=== PATIENT | male | born 1955 | race Caucasian/White ===

== ENCOUNTER 2025-01-28 09:26 | Day surgery (SDC) | payer MEDICARE, OTHER, SELFPAY ==
[2025-01-28] VITALS (13 sets, daily range): BP systolic 109–155; BP diastolic 80–95; PULSE 63–76; RESP 16–18; TEMP 36.2–36.8; O2SAT 95–100; BMI 29.0
[2025-01-28] MEDS: Ondansetron 4 MG/2 ML Vial IV (09:56)
[2025-01-28] MEDS: Ketorolac 15 MG/ML Vial IV (09:57)
[2025-01-28] MEDS: 0.9% Normal Saline (1000mL) 1,000 ML 1000 ML IV (09:58)
--- NOTE | 2025-01-28 10:01 | ED.VIS.FEGU ---
HPI HPI - Female History of Present Illness Chief Complaint: Flank Pain Narrative Narrative: Chief complaint and HPI: Left flank pain. 69-year-old male who has stage I prostate cancer, factor V Leiden not on anticoagulation, and history of urolithiasis in the past presents for evaluation of left flank pain. Onset of pain was prior to arrival. Patient states he was doing a leg press when he developed left flank pain. He states originally he thought he strained his back but then noticed it felt similar to his previous kidney stone pain. He denies any fever, chills, shortness of breath, chest pain, nausea, vomiting, dysuria, hematuria, diarrhea, constipation. Describes his pain as crampy. States he cannot get comfortable. Denies any penile or testicular pain. Review of systems: See HPI Medications: As listed on the chart Allergies: As listed on the chart PFSH: Per chart Vital signs: As listed on the chart. Reviewed. Physical exam: Gen: A&O x3, NAD Head: Normocephalic, atraumatic Eyes: No sclera icterus, conjunctiva clear ENT: Moist mucous membranes Neck: Trachea midline, No JVD CV: RRR, no murmurs, no peripheral edema Resp: Lungs CTA BL, no w/r/c GI: Abd soft, non-distended, non-tender, no r/r/g : No CVA tenderness Musc: Full ROM, no deformity, no midline spinal tenderness, no bony step-offs, back musculature nontender Skin: Warm, dry Neuro: Alert, oriented, grossly intact, sensation intact Psych: Cooperative, appropriate mood and affect [facility] Medical History Barretts esophagus Osteoarthritis Insomnia Benign prostatic hyperplasia Factor V Leiden mutation Hyperlipidemia Gastroduodenitis Gastritis Anxiety Hypertension Kidney stones Home Medications ?Medication ?Instructions ?Recorded ?Last Taken ?Type meloxicam 15 mg tablet 15 mg PO DAILY 01/28/25 Unknown History omeprazole 40 mg capsule,delayed 40 mg PO DAILY 01/28/25 Unknown History release promethazine-DM 6.25 mg-15 mg/5 mL 5 ml PO 4X/DAY PRN PRN cough 01/28/25 Unknown History oral syrup Allergy/AdvReac Type Severity Reaction Status Date / Time Penicillins Allergy Rash Verified 01/28/25 09:28 Surgical History Total knee replacement status History of appendectomy Social History Smoking Status: Never smoker EXAM Physical Exam Const Vital Signs: 01/28/25 09:28 01/28/25 11:34 01/28/25 12:17 Temperature 98.2 F 98.3 F Temperature Source Temporal Pulse Rate 63 67 67 Respiratory Rate 18 18 18 Respiratory Pattern Blood Pressure 150/93 H 155/95 H 155/95 H Blood Pressure Mean 112 115 115 Blood Pressure Source Blood Pressure Position Blood Pressure Location Baseline BP Pulse Ox 95 99 99 Oxygen Delivery Method Room Air Room Air Oxygen Flow Rate (L/min) 01/28/25 13:17 01/28/25 14:00 01/28/25 14:03 Temperature 98.3 F 97.1 F L 97.1 F L Temperature Source Temporal Pulse Rate 67 76 76 Respiratory Rate 18 16 16 Respiratory Pattern Normal Blood Pressure 155/95 H 121/86 H 121/86 H Blood Pressure Mean 97 Blood Pressure Source Monitor Blood Pressure Position Semi-Fowlers Blood Pressure Location Left Arm Baseline BP Pulse Ox 99 100 99 Oxygen Delivery Method Room Air Simple Mask Room Air Oxygen Flow Rate (L/min) 4 6 01/28/25 14:05 01/28/25 14:10 01/28/25 14:15 Temperature Temperature Source Pulse Rate 76 74 76 Respiratory Rate 16 16 16 Respiratory Pattern Blood Pressure 122/80 H 119/81 H 109/81 H Blood Pressure Mean 94 93 90 Blood Pressure Source Monitor Monitor Monitor Blood Pressure Position Semi-Fowlers Semi-Fowlers Semi-Fowlers Blood Pressure Location Left Arm Left Arm Left Arm Baseline BP 155/95 155/95 Pulse Ox 100 100 97 Oxygen Delivery Method Simple Mask Simple Mask Room Air Oxygen Flow Rate (L/min) 4 4 01/28/25 14:30 01/28/25 14:45 01/28/25 14:58 Temperature 97.9 F Temperature Source Temporal Pulse Rate 74 75 75 Respiratory Rate 16 16 16 Respiratory Pattern Blood Pressure 124/85 H 121/84 H 125/86 H Blood Pressure Mean 98 96 99 Blood Pressure Source Monitor Monitor Monitor Blood Pressure Position Semi-Fowlers Semi-Fowlers Semi-Fowlers Blood Pressure Location Left Arm Left Arm Left Arm Baseline BP 155/95 155/95 155/95 Pulse Ox 96 96 97 Oxygen Delivery Method Room Air Room Air Room Air Oxygen Flow Rate (L/min) 01/28/25 15:08 01/28/25 15:48 Temperature Temperature Source Pulse Rate Respiratory Rate Respiratory Pattern Normal Blood Pressure Blood Pressure Mean Blood Pressure Source Blood Pressure Position Blood Pressure Location Baseline BP 155/95 Pulse Ox Oxygen Delivery Method Oxygen Flow Rate (L/min) MDM MDM MDM Narrative Medical decision making narrative: 69-year-old male who has stage I prostate cancer, factor V Leiden not on anticoagulation, and history of urolithiasis in the past presents for evaluation of left flank pain. Differential diagnosis includes but is not limited to urolithiasis, musculoskeletal strain, UTI, suspect less likely diverticulitis. NS bolus, Zofran, Toradol ordered for pain. Labs ordered with CT abdomen pelvis without contrast. CBC without leukocytosis or anemia. UA negative for UTI but positive for blood. Further labs were prolonged as there was a issue with our lab machine. Multiple calls were made to the lab but this did prolong the patient's emergency department stay. BMP without significant electrolyte abnormality or SHARON. CT abdomen pelvis shows left renal pelvic calculi, largest measuring up to 6 mm with mild hydronephrosis. The prostate gland is enlarged. Recommend correlation with PSA. Patient has stage I prostate cancer. Hepatomegaly with fatty infiltration. Left inguinal hernia. Small esophageal hiatal hernia. I personally reviewed the CT abdomen pelvis myself, there appears to be a calculi in the left ureter in addition to the renal pelvic calculi. It measures approximately 3 mm with my measurement. On reevaluation, patient is still endorsing intractable pain despite morphine, Toradol, Dilaudid. Patient follows with [facility] urology but they do not take all at [facility] there for with urology was consulted as patient will warrant admission for intractable pain. He accepted admission. Impression: 1. Left ureterolithiasis 2. Intractable pain secondary to #1 Lab Data Labs: Laboratory Results - last 24 hr 01/28/25 01/28/25 09:57 10:25 WBC 8.5 RBC 5.14 Hgb 14.8 Hct 43.4 MCV 84.4 MCH 28.8 MCHC 34.1 RDW Std Deviation 39.7 RDW Coeff of Karin 13.0 Plt Count 188 MPV 10.3 Immature Gran % (Auto) 0.400 Neut % (Auto) 80.0 H Lymph % (Auto) 11.7 L [place] % (Auto) 5.7 Eos % (Auto) 1.4 Baso % (Auto) 0.8 Absolute Neuts (auto) 6.8 Absolute Lymphs (auto) 0.99 Nucleated RBC % 0 Sodium 136 Potassium 4.0 Chloride 100 Carbon Dioxide 25.7 Anion Gap 10 BUN 18 Creatinine 0.96 Est GFR (MDRD) Non-Af 84 BUN/Creatinine Ratio 19.1 Glucose 196 H Calcium 9.1 Urine Color Yellow Urine Clarity Clear Urine pH 6.0 Ur Specific [place] 1.020 Urine Protein 30 H Urine Glucose (UA) Normal Urine Ketones Negative Urine Occult Blood 250 H Urine Nitrite Negative Urine Bilirubin Negative Urine Urobilinogen Normal Ur Leukocyte Esterase 25 H Urine RBC > 100 SEEN Urine WBC 0 SEEN Ur Squamous Epith Cells 0 SEEN Urine Bacteria 0 SEEN Urine Mucus 0 SEEN Radiography Diagnostic Testing: Clinical Impression(s) from Imaging Studies Abdomen/Pelvis CT 01/28/25 11:06 IMPRESSION: 1. Left renal pelvic calculi, largest measuring up to 6 mm with mild hydronephrosis. 2. The prostate gland is enlarged. Correlation with PSA values may be helpful if not previously performed. 3. Small esophageal hiatal hernia. 4. Hepatomegaly with fatty infiltration. 5. Left inguinal hernia. Reading Location: [facility] C-Arm Fluoroscopy 01/28/25 13:45 IMPRESSION: Intraoperative imaging guidance as described. Reading Location: [facility] Discharge Plan Disposition Disposition: Acute Care Hospital [facility] Discharge Date/Time: 01/28/25 12:20
[2025-01-28 10:05] LABS: Absolute Lymphocyte Count 0.99 X10^3/uL (0.83-4.51); Absolute Neutrophil Count 6.8 X10^3/uL (2.0-7.7); Basophil# 0.07 X10^3/uL; Basophil% 0.8 % (0-1); Eosinophil# 0.12 X10^3/uL; Eosinophils% 1.4 % (0-5); Hematocrit 43.4 % (40-54); Hemoglobin 14.8 g/dL (13.0-16.5); Lymphocyte # 0.99 X10^3/ul (0.83-4.51); Lymphocyte % 11.7 % (19-41); Mean Corp Hgb Conc 34.1 g/dL (32-36); Mean Corpuscular Hgb 28.8 pg (27.0-32.0); Mean Corpuscular Volume 84.4 fL (80-94); Mean Platelet Vol. 10.3 fl (6.2-12.0); Monocyte# 0.48 X10^3/uL; Monocyte% 5.7 % (0-10); NRBC Flagged by Analyzer 0 % (0-5); Neutrophil # 6.77 X10^3/uL (2.7-7.7); Platelet Count 188 K/mm3 (150-450); RBC Distribution Width SD 39.7 fl (35.1-43.9); Red Blood Count 5.14 M/mm3 (4.6-6.2); White Blood Count 8.5 K/mm3 (4.4-11.0)
[2025-01-28 10:32] LABS: Bacteria 0 SEEN /hpf (None Seen); Mucous, Urine 0 SEEN /hpf (<or=2+); Squamous Epithelial Cells - UA 0 SEEN /hpf (0-5); White Blood Cells 0 SEEN /hpf (0-5)
[2025-01-28 10:34] LABS: Glucose, Dipstick Normal (Normal); Ketone-Dipstick Negative (Negative); Leukocyte Esterase-Dipstick 25 /ul (Negative); Nitrite-Dipstick Negative (Negative); Occult Blood-Urine 250 /ul (Negative); Protein-Dipstick 30 mg/dl (Negative); Urine Bilirubin Dipstick Negative (Negative); Urine Urobilinogen Normal (Normal)
[2025-01-28 10:38] LABS: BUN 18 mg/dL (4-19); BUN/Creat Ratio 19.1 RATIO (10-20); Calcium,Total 9.1 mg/dL (7.6-11.0); Carbon Dioxide 25.7 mmol/L (21.0-32.0); Creatinine, Serum 0.96 mg/dL (0.70-1.20); EST Glomerular Filtration Rate 84 (>60); Glucose 196 mg/dL (70-99)
[2025-01-28 10:43] LABS: Color, Urine Yellow (Yellow); Red Blood Cells-Urine > 100 SEEN /hpf (0-5); Urine Clarity Clear (Clear)
[2025-01-28] MEDS: Morphine 4 MG/ML Syringe IV (11:06)
--- NOTE | 2025-01-28 11:06 | CT_ITS ---
EXAM: CT Abdomen and Pelvis Without Intravenous Contrast CLINICAL INDICATION: LEFT FLANK PAIN TECHNIQUE: Axial computed tomography images of the abdomen and pelvis without intravenous contrast. This CT exam was performed using one or more of the following dose reduction techniques: automated exposure control, adjustment of the mA and/or kV according to patient size, and/or use of iterative reconstruction technique. COMPARISON: No relevant prior studies available. FINDINGS: LUNG BASES: Unremarkable. No mass. No consolidation. MEDIASTINUM: Small esophageal hiatal hernia. ABDOMEN: LIVER: Hepatomegaly with fatty infiltration. GALLBLADDER AND BILE DUCTS: Unremarkable. No calcified stones. No ductal dilation. PANCREAS: Unremarkable. No ductal dilation. SPLEEN: Unremarkable. No splenomegaly. ADRENALS: Unremarkable. No mass. KIDNEYS AND URETERS: Left renal pelvic calculi, largest measuring up to 6 mm with mild hydronephrosis. STOMACH AND BOWEL: Unremarkable. No obstruction. No mucosal thickening. PELVIS: APPENDIX: No findings to suggest acute appendicitis. BLADDER: Unremarkable. No stones. REPRODUCTIVE: The prostate gland is enlarged measuring 5.0 cm in maximum dimension. ABDOMEN and PELVIS: INTRAPERITONEAL SPACE: Unremarkable. No free air. No significant fluid collection. BONES/JOINTS: No acute fracture. No dislocation. SOFT TISSUES: Left inguinal hernia. VASCULATURE: Unremarkable. No abdominal aortic aneurysm. LYMPH NODES: Unremarkable. No enlarged lymph nodes. CT/Abdomen/Pelvis without Cont IMPRESSION: 1. Left renal pelvic calculi, largest measuring up to 6 mm with mild hydroneph rosis. 2. The prostate gland is enlarged. Correlation with PSA values may be helpful if not previously performed. 3. Small esophageal hiatal hernia. 4. Hepatomegaly with fatty infiltration. 5. Left inguinal hernia. Reading [facility]
[2025-01-28] MEDS: HYDROmorphone 1 MG/ML Syringe IV (11:51)
--- NOTE | 2025-01-28 11:58 | HP.PCM_ITS ---
HPI - General General Date of Service: 01/28/25 Chief Complaint: left flank pain HPI Narrative MARIANA ALLISON, is a 69 M who presents w stone in left ureter and kidney admit for kidney stone. take to surgery for left stent placment. [facility] Medical History Barretts esophagus Osteoarthritis Insomnia Benign prostatic hyperplasia Factor V Leiden mutation Hyperlipidemia Gastroduodenitis Gastritis Anxiety Hypertension Kidney stones Home Medications ?Medication ?Instructions ?Recorded ?Last Taken ?Type meloxicam 15 mg tablet 15 mg PO DAILY 01/28/25 Unkn own History omeprazole 40 mg capsule,delayed 40 mg PO DAILY Unknown History release promethazine-DM 6.25 mg-15 mg/5 mL 5 ml PO 4X/DAY PRN PRN cough 01/28/25 Unknown History oral syrup Allergy/AdvReac Type Severity Reaction Status Date / Time Penicillins Allergy Rash Verified 01/28/25 09:28 Surgical History Total knee replacement status History of appendectomy Social History Smoking Status: Never smoker ROS Constitutional Constitutional: Denies chills, fever(s) or malaise Eyes Eyes: Denies blurry vision or change in vision ENT HEENT: Reports none Cardiovascular Cardiovascular: Denies chest pain or palpitations Respiratory/Chest Respiratory/Chest: Denies cough or shortness of breath with exertion Gastrointestinal Gastrointestinal: Denies abdominal pain, constipation or diarrhea Musculoskeletal Musculoskeletal: Denies back pain, joint stiffness or joint swelling Integumentary Integumentary: Denies dry skin, jaundice, lesions or rash Neurologic Neurologic: Denies confusion, syncope or weakness Psychiatric Psychiatric: Reports none; Denies anxiety or depression Endocrine Endocrinology: Denies excessive sweating, fatigue or flushing Hematologic/Lymphatic Hematologic/Lymphatic: Denies anemia, easy bleeding or easy bruising Vital Signs Vital Signs Vital Signs: 01/28/25 09:28 01/28/25 11:34 Temperature 98.2 F Temperature Source Temporal Pulse Rate 63 67 Respiratory Rate 18 18 Blood Pressure 150/93 H 155/95 H Blood Pressure Mean 112 115 Pulse Ox 95 99 Oxygen Delivery Method Room Air Room Air Weight Weight: 97.2 kg Body Mass Index (BMI) 29.0 Physical Exam Const alert and oriented x3 General Appearance: cooperative HEENT normocephalic and head/scalp atraumatic Eyes PERRL and EOMs intact bilaterally Neck supple, no JVD and no carotid bruits Resp normal respiratory effort, normal air movement and clear to auscultation bilaterally Cardio regular rate and no murmurs GI normal to inspection, nondistended, normoactive bowel sounds and soft to palpation Extremity normal capillary refill General Extremity: no tenderness to palpation of joints or extremities; Negative for edema Skin no rashes or lesions noted and no wounds General Skin Exam: no breakdown Neuro CN's II-XII intact bilaterally Psych affect normal Appearance: appropriate Results Lab / Micro Data 01/28/25 09:57 01/28/25 09:57 Labs: Laboratory Results - last 24 hr 01/28/25 09:57: WBC 8.5, RBC 5.14, Hgb 14.8, Hct 43.4, MCV 84.4, MCH 28.8, MCHC 34.1, RDW Std Deviation 39.7, RDW Coeff of Karin 13.0, Plt Count 188, MPV 10.3, Immature Gran % (Auto) 0.400, Neut % (Auto) 80.0 H, Lymph % (Auto) 11.7 L, [place] % (Auto) 5.7, Eos % (Auto) 1.4, Baso % (Auto) 0.8, Absolute Neuts (auto) 6.8, Absolute Lymphs (auto) 0.99, Nucleated RBC % 0, Carbon Dioxide 25.7, BUN 18, Creatinine 0.96, Est GFR (MDRD) Non-Af 84, BUN/Creatinine Ratio 19.1, Glucose 196 H, Calcium 9.1 01/28/25 10:25: Urine Color Yellow, Urine Clarity Clear, Urine pH 6.0, Ur Specific [place] 1.020, Urine Protein 30 H, Urine Glucose (UA) Normal, Urine Ketones Negative, Urine Occult Blood 250 H, Urine Nitrite Negative, Urine Bilirubin Negative, Urine Urobilinogen Normal, Ur Leukocyte Esterase 25 H, Urine RBC > 100 SEEN, Urine WBC 0 SEEN, Ur Squamous Epith Cells 0 SEEN, Urine Bacteria 0 SEEN, Urine Mucus 0 SEEN Imaging Radiology Impression Abdomen/Pelvis CT 03/24/25 11:06 IMPRESSION: 1. Left renal pelvic calculi, largest measuring up to 6 mm with mild hydronephrosis. 2. The prostate gland is enlarged. Correlation with PSA values may be helpful if not previously performed. 3. Small esophageal hiatal hernia. 4. Hepatomegaly with fatty infiltration. 5. Left inguinal hernia. Reading Location: [facility] Assessment & Plan Assessment/Plan (1) Kidney stone on left side: PLAN: plan for cysto left stent today.
[2025-01-28 12:16] LABS: Anion Gap 10 (5-15); Chloride 100 mmol/L (98-108); Sodium Level 136 mmol/L (133-145)
[2025-01-28] MEDS: 0.9% Normal Saline (1000mL) 1,000 ML 15 ML IV (12:48)
--- NOTE | 2025-01-28 12:51 | PCM.DC ---
Discharge Instructions Diet Discharge Diet: No restrictions DC O2, CPAP, BIPAP needs Home O2 Discharge instructions: No Dressing / Incision Discharge Activity: Return to Normal Activity and May Not Drive (while taking narcotic pain medications.) Dressing / Incision Call your doctor if you observe: Fever of 101 or Higher Follow Up Care Please Follow Up With: Navarro Peunte MD When: Call [phone] for an appointment Test Results: Test results from this visit will be discussed in further detail at your follow-up appointment, if applicable. Discharge Plan Admission Admit Date/Time: 01/28/25 12:08 Attending Provider: Navarro Puente Primary Care Provider: Mirtha Sanchez Discharge Orders/Prescriptions Prescriptions: No Action promethazine-DM 6.25-15 mg/5 mL syrup 5 ml PO 4X/DAY PRN PRN (Reason: cough) meloxicam 15 mg tablet 15 mg PO DAILY omeprazole 40 mg capsule,delayed release(DR/EC) 40 mg PO DAILY Referrals / Follow Up: Mirtha Sanchez, SENIOR BIOINFORMATICS SPECIALIST [Primary Care Provider] - Disposition Discharge Orders: Discharge Patient (Routine); Ordered 01/28/25 Ordered By: Dr. Navarro Puente
--- NOTE | 2025-01-28 13:07 | PCM.PRE.AN2 ---
ASA Classification* ASA Classification ASA Classification: 2 and E Assessment & Plan Anesthesia* Anesthesia Assessment Anesthesia Assessment: Discussed sedation and/or anesthesia options, risks, benefits, and alternatives with patient/parents/legal guardian/POA. Questions invited. The patient/parents/legal guardian/POA seems to understand and agrees to proceed with anesthesia plan. Reviewed the physical assessment, medical history, allergy history and patient home medications list prior to surgery/procedure/anesthetic and documented any changes. Performed airway and anesthesia risk assessments. Anesthesia Type Anesthesia Type: MAC History Source History Obtained from:: Patient and Chart Anesthesia Focused Assessment* Temperature: 98.3 F Pulse Rate: 67 Blood Pressure: 155/95 Respiratory Rate: 18 Pulse Ox: 99 Oxygen Delivery Method: Room Air Airway Assessment Mouth opens: >3 cm Mallampati Score: III Teeth Condition: Chipped/Broken (Chipped tooth #8.) and Partial (Patient has upper and lower partials. They are out. Rest of the teeth are tight.) Neck Range of motion (ROM): Full ROM Focused Labs Anesthesia Preop lab: CBC WBC 8.5 K/mm3 (4.4-11.0) 01/28/25 09:57 01/28/25 RBC 5.14 M/mm3 (4.6-6.2) 01/28/25 09:57 01/28/25 Hgb 14.8 g/dL (13.0-16.5) 01/28/25 09:57 01/28/25 Hct 43.4 % (40-54) 01/28/25 09:57 01/28/25 Plt Count 188 K/mm3 (150-450) 01/28/25 09:57 01/28/25 CHEMISTRY Potassium 4.0 mmol/L (3.3-5.1) 01/28/25 09:57 01/28/25 Sodium 136 mmol/L (133-145) 01/28/25 09:57 01/28/25 BUN 18 mg/dL (4-19) 01/28/25 09:57 01/28/25 Creatinine 0.96 mg/dL (0.70-1.20) 01/28/25 09:57 01/28/25 Glucose 196 mg/dL (70-99) H 01/28/25 09:57 01/28/25 COAG Pre-Assessment Diagnosis/Proposed Procedure Planned Operative Procedure(s): Cystoscopy, stent insertion, left Anesthesia History Anesthesia History - 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 When Was Last Pacemaker Check QUESTION #4 FULL TEXT: You/Your Family Experience fever (hyperthermia) with Anesthesia Last Oral Intake Last Oral intake: Last Oral Intake NPO since 06:30 01/28/25 12:03 Meds taken in AM with sips of Yes 01/28/25 12:03 water? Meds patient instructed to take am of surgery Any additional information?: Yes NPO since: 06:30 (Patient had oatmeal and a couple cups of coffee at 6:30 AM) PONV PONV - operations research group manager: PONV - operations research group manager Female HX of Motion Sickness HX of N/V After Surgery Non-Smoker Duration of Surgery greater than 60 minutes Number of Risk Factors PONV Score Height & Weight Height & Weight: Anesthesia: Height & Weight Height 6 ft 01/28/25 12:03 Weight: 97.2 kg 01/28/25 12:03 Body Mass Index (BMI) 29.0 01/28/25 12:03 Respiratory Assessment Respiratory Assessment - operations research group manager: Respiratory Tract Infection Hx - operations research group manager Hx Respiratory Tract Infection No 01/28/25 12:03 Any additional information?: Yes Hx Respiratory Tract Infection: Yes (head cold for over a month. Txd with antibiotics/steroids. Clear for a wk) STOP Sleep Apnea STOP Sleep Apnea - operations research group manager: STOP Sleep Apnea - operations research group manager Hx Hypertension No 01/28/25 12:03 Hx Sleep Apnea Yes 01/28/25 12:03 CPAP No 01/28/25 12:03 BIPAP No 01/28/25 12:03 Do you snore loudly (louder than talking or can be heard Do you often feel tired/ fatigued/ sleepy during daytime? Has anyone observed you stop breathing during sleep? STOP Results Positive 01/28/25 12:03 QUESTION #5 FULL TEXT : Do you snore loudly (louder than talking or can be heard through closed doors)? 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 Specify any problems Hx of Preganancy in last 3 Months Nurse Filling Out Transfusion & Questions: Date: Time: Patient unable to answer at this time (ie. confused, unrespo /Reproduction History /Reproductive History - operations research group manager: /Reproductive Hx- operations research group manager Hx Now Gestational Age (in weeks): EDC: Hx Hx Para Hx Section SAB Active Medications Active Medications: Current Medications Generic Name Dose Route Start Last Admin Trade Name Freq PRN Reason Stop Dose Admin Acetaminophen 650 mg 01/28/25 12:51 Acetaminophen 325 Mg Tablet PO Q4H PRN PRN Pain Score 1-10 Sodium Chloride 1,000 mls @ 15 mls/hr 01/28/25 12:50 01/28/25 12:48 IV 15 mls/hr .Q48H MIKKI Administration Lactated Ringer's 1,000 mls @ 75 mls/hr 01/28/25 13:00 IV .[id number] Oxycodone HCl 5 - 10 mg 01/28/25 12:51 Oxycodone 5 Mg Tablet PO Q6H PRN PRN Pain Score 4-10 PFSH Medical History Barretts esophagus Osteoarthritis Insomnia Benign prostatic hyperplasia Factor V Leiden mutation Hyperlipidemia Gastroduodenitis Gastritis Anxiety Hypertension Kidney stones Home Medications ?Medication ?Instructions ?Recorded ?Last Taken ?Type meloxicam 15 mg tablet 15 mg PO DAILY 01/28/25 Unknown History omeprazole 40 mg capsule,delayed 40 mg PO DAILY 01/28/25 Unknown History release promethazine-DM 6.25 mg-15 mg/5 mL 5 ml PO 4X/DAY PRN PRN cough 01/28/25 Unknown History oral syrup Allergy/AdvReac Type Severity Reaction Status Date / Time Penicillins Allergy Rash Verified 01/28/25 09:28 Surgical History Total knee replacement status History of appendectomy Social History Smoking Status: Never smoker Review of Systems (Anesthesia) ROS Narrative System reviewed and no additional complaints, except as documented.
[2025-01-28] MEDS: Cefazolin 2 GM in Syringe IV (13:35)
--- NOTE | 2025-01-28 13:45 | RAD_ITS ---
PROCEDURE: O.R. FLUORO FOR C-ARM 01/28/2025 REASON FOR EXAM: CYSTO STENT TECHNIQUE: See below. COMPARISON: CT abdomen and pelvis without contrast of January 28, 2025. FINDINGS: Intraoperative fluoroscopic guidance was provided. 2.5 seconds total fluoroscopy time was utilized with continuous fluoro mode noted. Several spot radiographs of the left flank area were obtained showing the proximal portions of the guidewire and then trans ureteral stent with proximal pigtail noted. CD operators notes for details of the procedure. RAD/O.R. Fluoro for C-Arm IMPRESSION: Intraoperative imaging guidance as described. Reading Location: [place] [id number]
--- NOTE | 2025-01-28 13:51 | PCM.OPRPT ---
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 The urethra and genitals were prepped and draped in usual sterile fashion. Using a 21 [place] rigid cystourethroscope the entire length of the urethra was normal then went into the bladder. Identified the trigone the left and right ureteral orifice. I then cannulated the orifice and advanced a wire up into the kidney. I then backloaded a 5 [place] open ended catheter over the wire and injected contrast to delineate the anatomy. After the retrograde was performed I then used fluoroscopic images and guidance to advanced a wire up into the kidney and over the 0.038 glidewire I advanced a 6 [place] by 26 cm double pigtail stent. I then pulled the 0.038 Glidewire off and the stent coiled in the kidney bladder good position. The bladder was then drained. We confirmed the position of the stent by fluoroscopy. Patient anesthetic was reversed and was taken back to the PACU in good condition. Surgical Findings: stent placed Complications Complications: No Admit VTE Documentation VTE Present on Admission: No VTE Mechan Device Prophylaxis: SCD's VTE Pharm Prophylaxis ordered?: No
--- NOTE | 2025-01-28 14:02 | PCM.POST.ANE ---
Anesthesia: Postop Eval I Current Vital Signs Temperature: 97.1 F Pulse Rate: 76 Blood Pressure: 121/86 Respiratory Rate: 16 Pulse Ox: 99 Oxygen Delivery Method: Room Air Oxygen Flow Rate (L/min): 6 Assessment Airway patent: Yes Spontaneous unlabored respirations: Yes Mental status: Awake and Calm nausea: No Vomiting: No Anesthesia Complication: No Fluid Hydration Crystalloid volume administer (ml): 500 Total IV fluid infused: 500 Progress Note Anesthesia document: Postop Eval 1 completed: Yes
[2025-01-28] MEDS: oxyCODONE 5 MG Tablet PO (15:35)
[2025-01-28] MEDS: Acetaminophen 325 MG Tablet 650 MG PO (15:35)
--- NOTE | 2025-01-28 19:03 | POSTOPAN2_ITS ---
Anesthesia Postop Eval I Sum Postop Eval Completion status Anesthesia document: Postop Eval 1 completed: Yes Anesthesia Postop Eval I Summary Anesthesia Postop Eval I Summary: Anesthesia Postop Eval I: Assessment Summary Airway patent Yes 01/28/25 14:03 FARMWORKER DIVERSIFIED [email or web address] Spontaneous unlabored Yes 01/28/25 14:03 FARMWORKER DIVERSIFIED [email or web address] respirations Mental status Awake,Calm 01/28/25 14:03 FARMWORKER DIVERSIFIED [email or web address] nausea No 01/28/25 14:03 FARMWORKER DIVERSIFIED [email or web address] Vomiting No 01/28/25 14:03 FARMWORKER DIVERSIFIED [email or web address] Anesthesia Postop Eval I: Fluid Summary Crystalloid volume administer 500 01/28/25 14:03 FARMWORKER DIVERSIFIED [email or web address] (ml) Colloids volume administered ( ml) Blood Product volume administered (ml) Total IV fluid infused 500 01/28/25 14:03 FARMWORKER DIVERSIFIED [email or web address] Anesthesia Postop Eval I: Summary Notes Anesthesia Complication No 01/28/25 14:03 FARMWORKER DIVERSIFIED [email or web address] Anesthesia Complication Comment: Post-operative progress note Anesthesia: Postop Eval II Evaluation Mental status: Awake and Calm Pain Level: 1 nausea: No Vomiting: No Complications Anesthesia Complication: No
--- NOTE | 2025-01-28 19:03 | PCM.POSTANE2 ---
Anesthesia Postop Eval I Sum Postop Eval Completion status Anesthesia document: Postop Eval 1 completed: Yes Anesthesia Postop Eval I Summary Anesthesia Postop Eval I Summary: Anesthesia Postop Eval I: Assessment Summary Airway patent Yes 01/28/25 14:03 BUILDING [email or web address] Spontaneous unlabored Yes 01/28/25 14:03 BUILDING CODE [email or web address] respirations Mental status Awake,Calm 01/28/25 14:03 BUILDING CODE [email or web address] nausea No 01/28/25 14:03 BUILDING CODE [email or web address] Vomiting No 01/28/25 14:03 BUILDING [email or web address] [email or web address] Anesthesia Postop Eval I: Fluid Summary Crystalloid volume administer 500 01/28/25 14:03 BUILDING [email or web address] [email or web address] (ml) Colloids volume administered ( ml) Blood Product volume administered (ml) Total IV fluid infused 500 01/28/25 14:03 BUILDING [email or web address] [email or web address] Anesthesia Postop Eval I: Summary Notes Anesthesia Complication No 01/28/25 14:03 BUILDING [email or web address] Anesthesia Complication Comment: Post-operative progress note Anesthesia: Postop Eval II Evaluation Mental status: Awake and Calm Pain Level: 1 nausea: No Vomiting: No Complications Anesthesia Complication: No
== END 2025-01-28 16:02 | disposition home or self-care (01) ==
LOC: ED 12:03 → MS3 12:52 → SDC 14:58 → AC 14:59
PROVIDERS: Emergency Provider Surgery; PCP Clinical Nurse Specialist Adult Health; Referring Provider Urology; Visit Provider Urology
PROC: (CPT 52332; principal; 2025-01-28 14:25)
DX: N13.2 Hydronephrosis with renal and ureteral calculous obstruction (principal); C61 Malignant neoplasm of prostate; I10 Essential (primary) hypertension; Z79.899 Other long term (current) drug therapy
CPT/HCPCS: 52332; 52351; 00910; 74176; 76000; 80048; 81001; 85025; 99285; A4216; C1769; C2617; J2405